=== PATIENT | male | born 1995 | race African-American/Black ===

== ENCOUNTER 2020-07-03 10:14 | Emergency (ER) | payer SELFPAY ==
[~2020-07-03] VITALS: Ht 180.3 cm; Wt 70.0 kg
[2020-07-03 12:59] LABS: CLARITY URINE CLEAR (CLEAR); COLOR URINE YELLOW (YELLOW); KETONES URINE NEGATIVE (NEGATIVE); LEUKOCYTE ESTERASE URINE NEGATIVE (NEGATIVE); NITRITE URINE NEGATIVE (NEGATIVE); OCCULT BLOOD URINE NEGATIVE (NEGATIVE); PH URINE 6.5 (4.5-8.0); PROTEIN URINE TRACE (NEGATIVE); SPECIFIC GRAVITY URINE 1.016 (1.005-1.030)
[2020-07-03] MEDS ORDERED: METR-167 PO (13:36)
[2020-07-03] MEDS ORDERED: CEFTRIAXONE SODIUM 250 MG/VIAL IM ONE (14:00)
[2020-07-03] MEDS ORDERED: AZITHROMYCIN 500 MG TABLET PO ONE (14:00)
[2020-07-03] MEDS ORDERED: LIDOCAINE HCL 1% 20ML VIAL (Pyxis) INJ INFIL ONE (14:00)
[2020-07-03 14:02] VITALS: BP 141/85
== END 2020-07-03 14:03 | disposition home or self-care (01) ==
LOC: ER 11:05
DX: A64 Unspecified sexually transmitted disease (principal)
CPT/HCPCS: 81003; 96372; 99283; J0696; J3490